=== PATIENT | male | born 1970 | race Caucasian/White ===

== ENCOUNTER 2022-04-27 05:30 | Emergency (ER) | payer OTHER ==
[~2022-04-27] VITALS: Ht 175.3 cm; Wt 154.2 kg
[2022-04-27] MEDS ORDERED: ULTRAM50 MG PO (06:24)
[2022-04-27] MEDS ORDERED: HYDROCODONE/APAP 5MG-325MG TAB PO ONE (06:30)
[2022-04-27] MEDS ORDERED: ONDANSETRON HCL 4 MG ORAL DISINTEGRATING TAB PO ONE (06:30)
== END 2022-04-27 06:47 | disposition home or self-care (01) ==
LOC: FSED 06:02
DX: M25.561 Pain in right knee (principal); G89.29 Other chronic pain; I10 Essential (primary) hypertension; M10.9 Gout, unspecified; E66.9 Obesity, unspecified
CPT/HCPCS: 99282

== ENCOUNTER 2024-04-11 10:23 | Emergency (ER) | payer OTHER ==
[~2024-04-11] VITALS: Ht 175.3 cm; Wt 181.4 kg
[~2024-04-11 10:23] MED LIST: ALLOPURINOL300 MG PO; ATENOLOL100 MG PO; CLONIDINE HCL0.1 MG PO; FLOMAX0.4 MG PO; LEVOFLOXACIN250 MG PO; LISINOPRIL40 MG PO; TAMSULOSIN PO; ULTRAM50 MG PO; VERAPAMIL HCL360 MG PO; ZYVOX600 MG PO
[2024-04-11] MEDS ORDERED: SODIUM CHLORIDE 0.9% 1000ML 1,000 ML ONE (11:32)
[2024-04-11 11:34] LABS: BASOPHILS # (AUTO) 0.1 (0.0-0.1); BASOPHILS % 0.2 % (0.0-1.0); EOSINOPHILS % 0.2 % (0.0-6.0); HEMATOCRIT 37.1 % (38.2-49.6); HEMOGLOBIN 11.7 g/dL (14.0-18.0); LYMPHOCYTES # (AUTO) 1.7 (1.0-3.2); LYMPHOCYTES % 8.1 % (18.0-39.1); MEAN CORPUSCULAR HGB CONC 31.5 g/dL (31-35); MEAN CORPUSCULAR VOLUME 95.1 fL (81-99); MONOCYTES # (AUTO) 1.1 (0.2-0.8); MONOCYTES % 5.3 % (4.4-11.3); NEUTROPHILS # (AUTO) 17.3 (2.1-6.9); NEUTROPHILS % 85.1 % (38.7-80.0); PLATELET COUNT 365 x10e3/uL (140-360); RED CELL DISTRIBUTION WIDTH 14.7 % (11.7-14.4); WHITE BLOOD COUNT 20.37 x10e3/uL (4.8-10.8)
[2024-04-11] MEDS ORDERED: MIDAZOLAM HCL 2 MG/2 ML VIAL ONE (11:35)
[2024-04-11] MEDS ORDERED: ETOMIDATE 2 MG/ML 10 ML INJ IV ONE (11:35)
[2024-04-11] MEDS ORDERED: SUCCINYLCHOLINE CHLORIDE 20 MG/ML 10ML VIAL ONE (11:35)
[2024-04-11 11:42] LABS: INR 1.5; PROTHROMBIN TIME 18.9 seconds (11.9-14.5)
[2024-04-11 11:43] LABS: PARTIAL THROMBOPLASTIN TIME 42.4 seconds (23.8-35.5)
[2024-04-11 11:47] LABS: ALANINE AMINOTRANSFERASE 15 IU/L (0-55); ALBUMIN 2.9 g/dL (3.5-5.0); ALBUMIN/GLOBULIN RATIO 0.7 (0.8-2.0); ALKALINE PHOSPHATASE 42 IU/L (40-150); ANION GAP 23.3 mmol/L (8-16); BILIRUBIN,TOTAL 1.6 mg/dL (0.2-1.2); BLOOD UREA NITROGEN 62 mg/dL (7-26); BUN/CREATININE RATIO 12 (6-25); CALCIUM 8.8 mg/dL (8.4-10.2); CARBON DIOXIDE 13 mmol/L (22-29); CHLORIDE 101 mmol/L (98-107); CREATINE KINASE 113 IU/L (30-200); CREATININE, SERUM 5.36 mg/dL (0.72-1.25); EST GLOMERULAR FILTRATION RATE 12 ML/MIN (>=60); GLUCOSE 110 mg/dL (74-118); SODIUM 132 mmol/L (136-145); TOTAL PROTEIN 7.1 g/dL (6.5-8.1)
[2024-04-11 11:49] LABS: BAND NEUTROPHILS % (MANUAL) 22 %; EOSINOPHILS % (MANUAL) 1 % (0-7); LYMPHOCYTES % (MANUAL) 8 % (19-48); METAMYELOCYTES % (MANUAL) 1 % (0-0); MONOCYTES % (MANUAL) 9 % (3.4-9.0); NEUTROPHILS % (MANUAL) 57 % (40-74); POTASSIUM 5.3 mmol/L (3.5-5.1); REACTIVE LYMPHOCYTES 2
[2024-04-11 11:50] LABS: PLATELET ESTIMATE ADEQUATE; PLATELET MORPHOLOGY COMMENT NORMAL; RBC MORPHOLOGY COMMENT NORMAL
[2024-04-11 11:53] LABS: TROPONIN I 0.003 ng/mL (0-0.300)
[2024-04-11 12:07] LABS: COVID 19 ANTIGEN NOT DETECTED (NEGATIVE)
[2024-04-11] MEDS: SODIUM CHLORIDE 0.9% 1000ML 1,000 ML IV STA ×2 (12:07→12:18)
[2024-04-11] MEDS: VANCOMYCIN 1.5 GM/300 ML (PEG) 300 ML IV ONE (12:23)
[2024-04-11 12:48] LABS: CLARITY,URINE TURBID (CLEAR); COLOR,URINE YELLOW (YELLOW); LEUKOCYTE ESTERASE ,URINE MODERATE (NEGATIVE); NITRITE,URINE NEGATIVE (NEGATIVE); PH,URINE 5 (5 - 7); PROTEIN,URINE DIPSTICK 1+ (NEGATIVE)
[2024-04-11 12:49] LABS: BACTERIA,URINE FEW /HPF; BILIRUBIN,URINE SMALL (NEGATIVE); EPITHELIAL CELLS,URINE FEW /LPF; GLUCOSE, URINE NEGATIVE (NEGATIVE); KETONES,URINE TRACE (NEGATIVE); RBC,URINE >50 /HPF (0-5); URINE UROBILINOGEN 0.2 mg/dL (0.2 - 1); WBC,URINE (MAN) >50 /HPF (0-5)
[2024-04-11] MEDS ORDERED: ATROPINE SULFATE 0.1 MG/ML 10ML SYR ONE (12:56)
[2024-04-11] MEDS: NOREPINEPHRINE 8 MG/D5W 250 ML 250 ML IV SCH (12:59)
[2024-04-11] MEDS: ATROPINE SULFATE 1 MG/ML VIAL IV ONE (13:04)
[2024-04-11] MEDS: ATROPINE SULFATE 0.1 MG/ML 10ML SYR IV ONE (13:09)
[2024-04-11] MEDS: SODIUM CHLORIDE 0.9% 1000ML 1,000 ML IV SCH (13:19)
[2024-04-11] MEDS: SUCCINYLCHOLINE CHLORIDE 20 MG/ML 10ML VIAL IV STA (13:22)
[2024-04-11] MEDS: ETOMIDATE 2 MG/ML 10 ML INJ IV STA (13:25)
[2024-04-11] MEDS: SUCCINYLCHOLINE 200 MG/10 ML SYR IV STA (13:33)
[2024-04-11 13:37] LABS: ABG HCO3 11 mmol/L (22-26); ABG PCO2 27 mmHg (35-45); ABG PO2 121 mmHg (80-105); ABG TCO2 11
[2024-04-11] MEDS: FENTANYL 2000MCG/NS 250 250 ML IV PRN (14:17)
[2024-04-11] MEDS ORDERED: LACTATED RINGER'S 1,000 ML ONE (15:27)
[2024-04-11] MEDS ORDERED: SODIUM BICARBONATE 8.4% SYRING 100 ML ONE (15:28)
[2024-04-11] MEDS: SODIUM BICARBONATE 8.4% INJ 50 ML SYR IV STA (15:29)
[2024-04-11] MEDS: HYDROCORTISONE SOD SUCCINATE 100 MG VIAL IV ONE (15:36)
[2024-04-11 15:39] LABS: ABG HCO3 13 mmol/L (22-26); ABG PCO2 34 mmHg (35-45); ABG PH 7.18 (7.35-7.45); ABG PO2 77 mmHg (80-105); ABG TCO2 14
[2024-04-11 15:52] VITALS: PULSE 108; RESP 20; O2SAT 99
[2024-04-11] MEDS: SODIUM CHLORIDE 0.9% 1000ML 1,000 ML IV ONE (16:08)
[2024-04-11] MEDS: LACTATED RINGER'S 1,000 ML INJ SCH (16:09)
[2024-04-11] MEDS: MIDAZOLAM HCL 2 MG/2 ML VIAL IV STA (17:30)
[2024-04-11 18:05] VITALS: PULSE 73; RESP 18; TEMP 97.5
[2024-04-11 19:13] VITALS: BP 154/65; PULSE 78; RESP 18; TEMP 98.3; O2SAT 98
== END 2024-04-11 19:00 | disposition other institution (70) ==
LOC: ER 11:28
DX: R00.1 Bradycardia, unspecified (principal); R65.21 Severe sepsis with septic shock; I95.9 Hypotension, unspecified; I10 Essential (primary) hypertension; M10.9 Gout, unspecified; E66.9 Obesity, unspecified; Z11.52 Encounter for screening for COVID-19
CPT/HCPCS: 0223U; 31500; 36415; 36600; 51700; 71045; 80053; 81001; 82550; 82805; 83605; 84484; 85025; 85610; 85730; 87040; 87071; 87086; 87186; 87205; 87400; 93005; 94002; 94003; 94799; 99284; J0330; J0692; J1720; J2250; J7030; J7121